=== PATIENT | female | born 1995 | race Caucasian/White ===

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

== ENCOUNTER 2017-02-01 20:22 | Inpatient (IN) | payer SELFPAY ==
[~2017-02-01] VITALS: Ht 152.4 cm; Wt 61.3 kg
[2017-02-01 20:23] VITALS: BP 137/85; PULSE 77; RESP 16; TEMP 98.1; O2SAT 97
[2017-02-01] MEDS ORDERED: SODIUM CHLORIDE 0.9% FLUSH 10 ML FLUSH IVF PRN (20:45)
[2017-02-01 20:52] VITALS: RESP 14; O2SAT 99
--- NOTE | 2017-02-01 20:55 | PD ---
HPI Chief Complaint: OD/ Ingestion Time Seen by Provider: 20:32 Travel History International Travel<30 days: No Contact w/Intl Traveler<30days: No Traveled to known affect area: No History of Present Illness HPI The patient is a 21-year-old female who presents emergency department after accidental ingestion of Tylenol. The patient states she has a history of chronic headaches, gets fevers easily, and felt warm today after work. The patient took 2 500 mg tablets of Tylenol approximately 6:30 PM. The patient then took approximately 6 more tablets over 2 hours for her headache, totaling a total of 4 g of Tylenol over approximately 3 hours. The patient does complain of mild nausea, states she normally has nausea after taken medications. Denies any vomiting or abdominal pain. The patient denies any suicidal ideation and denies any attempt to harm herself. The patient is currently asymptomatic. However, the patient was concerned about toxicity from the Tylenol. The symptoms are mild to nonexistent, no exacerbating or alleviating factors. PFSH Past Medical History Cancer: No Cardiovascular Problems: No Developmental Delay: No Diabetes: No Headaches: No Psychiatric: No Immunizations Current: Yes Seizures: No ?: Not LMP: doesnt have last had 3-4months ago Past Surgical History Section: No Social History Alcohol Use: No Tobacco Use: No Substance Use: No Allergies-Medications (Allergen,Severity, Reaction): Coded Allergies: cinnamon (Verified Allergy, Severe, Anaphylaxis, 02/01/17) No Known Allergies (Unverified Allergy, Unknown, 02/01/17) Reported Meds & Prescriptions Reported Meds & Active Scripts Active No Active Prescriptions or Reported Medications Review of Systems Except as stated in HPI: all other systems reviewed are Neg General / Constitutional: Positive: Fever HENT: Positive: Headaches, No: Neck Pain Cardiovascular: No: Chest Pain or Discomfort Respiratory: No: Shortness of Breath Gastrointestinal: No: Nausea, Vomiting, Abdominal Pain Musculoskeletal: No: Myalgias, Arthralgias Physical Exam Narrative GENERAL: Awake, alert, nontoxic-appearing 21-year-old female who appears his stated age and is in no acute respiratory distress. SKIN: Focused skin assessment warm/dry. HEAD: Atraumatic. Normocephalic. EYES: No icterus noted. ENT: No nasal bleeding or discharge. Mucous membranes pink and moist. NECK: Trachea midline. No JVD. CARDIOVASCULAR: Regular rate and rhythm. No murmur appreciated. RESPIRATORY: No accessory muscle use. Clear to auscultation. Breath sounds equal bilaterally. GASTROINTESTINAL: Abdomen soft, non-tender, nondistended. No significant hepatomegaly noted. No right upper quadrant tenderness. MUSCULOSKELETAL: No obvious deformities. No clubbing. No cyanosis. No edema. NEUROLOGICAL: Awake and alert. No obvious cranial nerve deficits. Motor grossly within normal limits. Normal speech. PSYCHIATRIC: Appropriate mood and affect; insight and judgment normal. Data Data Last Documented VS Vital Signs Date Time Temp Pulse Resp B/P (MAP) Pulse Ox O2 Delivery O2 Flow Rate FiO2 02/01/17 20:52 14 99 Room Air 02/01/17 20:23 98.1 77 Orders Orders Complete Blood Count With Diff (02/01/17 20:44) Comprehensive Metabolic Panel (02/01/17 20:44) Prothrombin Time / Inr (Pt) (02/01/17 20:44) Act Partial Throm Time (Ptt) (02/01/17 20:44) Iv Access Insert/Monitor (02/01/17 20:44) Ecg Monitoring (02/01/17 20:44) Oximetry (02/01/17 20:44) Sodium Chloride 0.9% Flush (Ns Flush) (02/01/17 20:45) Salicylates (Aspirin) (02/01/17 20:44) Tylenol (Acetaminophen) (02/01/17 20:44) Ed Discharge Order (02/01/17 22:12) Alcohol (Ethanol) (02/01/17 22:27) Electrocardiogram (02/01/17 ) Acetylcysteine Inj (Acetadote Inj) (02/01/17 22:30) Acetylcysteine Inj (Acetadote Inj) (02/01/17 23:30) Acetylcysteine Inj (Acetadote Inj) (02/02/17 03:30) Admit Order (Ed Use Only) (02/01/17 22:45) Labs Laboratory Tests Test 02/01/17 20:50 White Blood Count 9.7 TH/MM3 Red Blood Count 4.53 MIL/MM3 Hemoglobin 12.9 GM/DL Hematocrit 38.6 % Mean Corpuscular Volume 85.2 FL Mean Corpuscular Hemoglobin 28.5 PG Mean Corpuscular Hemoglobin Concent 33.5 % Red Cell Distribution Width 13.3 % Platelet Count 313 TH/MM3 Mean Platelet Volume 8.9 FL Neutrophils (%) (Auto) 68.2 % Lymphocytes (%) (Auto) 21.6 % Monocytes (%) (Auto) 9.2 % Eosinophils (%) (Auto) 0.5 % Basophils (%) (Auto) 0.5 % Neutrophils # (Auto) 6.6 TH/MM3 Lymphocytes # (Auto) 2.1 TH/MM3 Monocytes # (Auto) 0.9 TH/MM3 Eosinophils # (Auto) 0.0 TH/MM3 Basophils # (Auto) 0.0 TH/MM3 CBC Comment DIFF FINAL Differential Comment Prothrombin Time 10.5 SEC Prothromb Time International Ratio 1.0 RATIO Activated Partial Thromboplast Time 29.2 SEC Blood Urea Nitrogen 12 MG/DL Creatinine 0.72 MG/DL Random Glucose 99 MG/DL Total Protein 8.4 GM/DL Albumin 4.3 GM/DL Calcium Level 8.9 MG/DL Alkaline Phosphatase 74 U/L Aspartate Amino Transf (AST/SGOT) 6 U/L Alanine Aminotransferase (ALT/SGPT) 13 U/L Total Bilirubin 0.3 MG/DL Sodium Level 140 MEQ/L Potassium Level 3.7 MEQ/L Chloride Level 107 MEQ/L Carbon Dioxide Level 24.7 MEQ/L Anion Gap 8 MEQ/L Estimat Glomerular Filtration Rate 104 ML/MIN Salicylates Level LESS THAN 1.7 MG/DL Acetaminophen Level 174.2 MCG/ML Ethyl Alcohol Level LESS THAN 3 MG/DL MDM Medical Decision Making Medical Screen Exam Complete: Yes Emergency Medical Condition: Yes Medical Record Reviewed: Yes Interpretation(s) Laboratory Tests Test 02/01/17 20:50 White Blood Count 9.7 TH/MM3 Red Blood Count 4.53 MIL/MM3 Hemoglobin 12.9 GM/DL Hematocrit 38.6 % Mean Corpuscular Volume 85.2 FL Mean Corpuscular Hemoglobin 28.5 PG Mean Corpuscular Hemoglobin Concent 33.5 % Red Cell Distribution Width 13.3 % Platelet Count 313 TH/MM3 Mean Platelet Volume 8.9 FL Neutrophils (%) (Auto) 68.2 % Lymphocytes (%) (Auto) 21.6 % Monocytes (%) (Auto) 9.2 % Eosinophils (%) (Auto) 0.5 % Basophils (%) (Auto) 0.5 % Neutrophils # (Auto) 6.6 TH/MM3 Lymphocytes # (Auto) 2.1 TH/MM3 Monocytes # (Auto) 0.9 TH/MM3 Eosinophils # (Auto) 0.0 TH/MM3 Basophils # (Auto) 0.0 TH/MM3 CBC Comment DIFF FINAL Differential Comment Prothrombin Time 10.5 SEC Prothromb Time International Ratio 1.0 RATIO Activated Partial Thromboplast Time 29.2 SEC Blood Urea Nitrogen 12 MG/DL Creatinine 0.72 MG/DL Random Glucose 99 MG/DL Total Protein 8.4 GM/DL Albumin 4.3 GM/DL Calcium Level 8.9 MG/DL Alkaline Phosphatase 74 U/L Aspartate Amino Transf (AST/SGOT) 6 U/L Alanine Aminotransferase (ALT/SGPT) 13 U/L Total Bilirubin 0.3 MG/DL Sodium Level 140 MEQ/L Potassium Level 3.7 MEQ/L Chloride Level 107 MEQ/L Carbon Dioxide Level 24.7 MEQ/L Anion Gap 8 MEQ/L Estimat Glomerular Filtration Rate 104 ML/MIN Salicylates Level LESS THAN 1.7 MG/DL Acetaminophen Level 174.2 MCG/ML Differential Diagnosis Differential diagnoses includes acetaminophen toxicity, accidental acetaminophen overdose, hepatitis, medication side effect, viral syndrome. Narrative Course IV was established and labs are drawn and sent. Initial Tylenol level was sent and the 4 hour Tylenol level was ordered for 12:40 AM. The initial acetaminophen level was 174.2, therefore, poison control was contacted. Poison control recommends treatment with acetylcysteine. Therefore, I do discussion with the patient regarding the need for treatment. However, the patient states she cannot afford to miss work and wants to leave the hospital. I had a prolonged discussion with the patient regarding the risk and benefits of leaving against medical record transcriber. I did tell her that if she continues to have an elevated acetaminophen level it can affect the liver causing acute hepatitis with symptoms including nausea, vomiting, hepatic failure, and subsequent and/or the need for liver transplant. I advised patient that she would need treatment with the antidote secondary to the elevated level. However, the patient adamantly refuses, states she wants to leave and go to work. The patient is alert and oriented to person, place, month, year, and bicycle repairer. Denies suicidal ideation, states he was an unintentional overdose secondary to her headache. The patient does not meet Gruber act criteria, I tried to reason with the patient at length regarding the need for treatment, however, the patient refused. However, the patient then changed her mind and stated she would stay after speaking with nursing staff. The patient was worried about her service animal that is a cat. I had a discussion with the charge nurse who stated the patient' s service animal can stay with the patient if necessary. The patient did decide to stay, therefore, IV acetylcysteine was ordered immediately. Patient will be admitted to the medical service. Procedures Procedure Narrative AMA: The risks of leaving against medical advice without further evaluation treatment were discussed with the patient. These risks include cardiac dysfunction, cardiac dysrhythmia, possible heart attack, possible stroke or . The patient indicated understanding of these risks and appeared to have the capacity to make this decision. Physician Communication Physician Communication The on-call medical service was paged for admission. I discussed the patient with Dr Menon who agrees with admission. Diagnosis Primary Impression: Accidental acetaminophen overdose Qualified Codes: T39.1X1A - Poisoning by 4-aminophenol derivatives, accidental (unintentional), initial encounter Admitting Information Admitting Physician Requests: Admit Patient Instructions: General Instructions Med/Other Pt SpecificInfo: No Change to Meds Scripts No Active Prescriptions or Reported Meds Condition: Stable Mohsen Connor MD Feb 01, 2017 20:55
[2017-02-01 21:22] LABS: AUTOMATED NEUTROPHIL # 6.6 TH/MM3 (1.8-7.7); BASOPHIL % 0.5 % (0.0-2.0); EOSINOPHIL % 0.5 % (0.0-4.0); HEMATOCRIT 38.6 % (35.0-46.0); HEMO FLAGS DIFF FINAL; LYMPH % 21.6 % (9.0-44.0); LYMPHOCYTE # 2.1 TH/MM3 (1.0-4.8); MEAN CELL VOLUME 85.2 FL (80.0-100.0); MEAN CORPUSCULAR HEMOGLOBIN 28.5 PG (27.0-34.0); MEAN CORPUSCULAR HGB CONC 33.5 % (32.0-36.0); MONO % 9.2 % (0.0-8.0); NEUT % 68.2 % (16.0-70.0); PLATELET COUNT 313 TH/MM3 (150-450); RED BLOOD COUNT 4.53 MIL/MM3 (4.00-5.30); RED CELL DISTRIBUTION WIDTH 13.3 % (11.6-17.2); WHITE BLOOD COUNT 9.7 TH/MM3 (4.0-11.0)
[2017-02-01 21:23] LABS: APTT (PATIENT) 29.2 SEC (24.3-30.1); PROTHROMBIN TIME - PATIENT 10.5 SEC (9.8-11.6)
[2017-02-01 21:37] LABS: ANION GAP 8 MEQ/L (5-15); AST (GOT) 6 U/L (16-38); BICARBONATE 24.7 MEQ/L (21.0-32.0); BLOOD UREA NITROGEN 12 MG/DL (7-18); CHLORIDE 107 MEQ/L (98-107); GLOMERULAR FILTRATION RATE 104 ML/MIN (>89); POTASSIUM 3.7 MEQ/L (3.5-5.1); SODIUM (NA) 140 MEQ/L (136-145)
[2017-02-01 21:38] LABS: ALT (GPT) 13 U/L (9-42)
[2017-02-01 21:40] LABS: ALKALINE PHOSPHATASE 74 U/L (45-117); TOTAL BILIRUBIN ADULT 0.3 MG/DL (0.2-1.0)
[2017-02-01 21:43] LABS: ACETAMINOPHEN 174.2 MCG/ML (10.0-30.0)
[2017-02-01] MEDS ORDERED: WATER IV SCH ×2 (22:30)
[2017-02-01] MEDS ORDERED: ACETYLCYSTEINE IV SCH ×4 (22:30→23:30)
[2017-02-01] MEDS ORDERED: DEXTROSE 5% IV SCH ×4 (22:30→23:30)
--- NOTE | 2017-02-01 22:49 | HHI.HP ---
[facility] Service [facility] Primary Care Physician No Primary Care Physician Admission Diagnosis Tylenol ingestion with elevated level Diagnoses: (1) Accidental acetaminophen overdose Diagnosis: Principal (2) Intractable nausea and vomiting Diagnosis: Principal Travel History International Travel<30 Days: No Contact w/Intl Traveler <30 Da: No Traveled to Known Affected Are: No History of Present Illness This is a 21-year-old Transgender female (goes by the name Marques) with no significant PMH who presents the ER with concern for Tylenol toxicity. Per patient she's had severe headache earlier today, states she took 2 tablets of Tylenol 500mg at approx 1830 w/ no improvement. Took additional 6 tablets of Tylenol 500mg in 2-hour time span, total dose of 4gm over 3hr period. Now w/ complaints of nausea/vomiting. Denies suicidal ideation, reports accidental Tylenol overdose. Tylenol level 174, labs otherwise unremarkable. Poison Control contacted, recommended N-acetylcysteine and EKG. Review of Systems Except as stated in HPI: all other systems reviewed are Neg ROS: 14 point review of systems otherwise negative. Past Family Social History Past Medical History PMH: None Past Surgical History PAST SURGICAL HISTORY: None Allergies: Coded Allergies: cinnamon (Verified Allergy, Severe, Anaphylaxis, 02/01/17) No Known Allergies (Unverified Allergy, Unknown, 02/01/17) Family History PAST FAMILY HISTORY: Reviewed. No h/o DM or CAD Social History PAST SOCIAL HISTORY: Negative for alcohol, tobacco or drugs. Physical Exam Vital Signs Vital Signs Date Time Temp Pulse Resp B/P (MAP) Pulse Ox O2 Delivery O2 Flow Rate FiO2 02/01/17 20:52 14 99 Room Air 02/01/17 20:23 98.1 77 16 137/85 (102) 97 Room Air Physical Exam PE: GENERAL: Pleasant young transgender female in no acute distress. HEENT: PERRLA, EOMI. No scleral icterus or conjunctival pallor. No lid lag or facial droop. CARDIOVASCULAR: Regular rate and rhythm. No obvious murmurs to auscultation. No chest tenderness to palpation. RESPIRATORY: No obvious rhonchi or wheezing. Clear to auscultation. Breath sounds equal bilaterally. GASTROINTESTINAL: Abdomen soft, non-tender, nondistended. BS normal. MUSCULOSKELETAL: Extremities without clubbing, cyanosis, or edema. No obvious deformities. NEUROLOGICAL: Awake, alert and oriented x4. No focal neurologic deficits. Moving both upper and lower extremities spontaneously. Laboratory Laboratory Tests Test 02/01/17 20:50 White Blood Count 9.7 Red Blood Count 4.53 Hemoglobin 12.9 Hematocrit 38.6 Mean Corpuscular Volume 85.2 Mean Corpuscular Hemoglobin 28.5 Mean Corpuscular Hemoglobin Concent 33.5 Red Cell Distribution Width 13.3 Platelet Count 313 Mean Platelet Volume 8.9 Neutrophils (%) (Auto) 68.2 Lymphocytes (%) (Auto) 21.6 Monocytes (%) (Auto) 9.2 Eosinophils (%) (Auto) 0.5 Basophils (%) (Auto) 0.5 Neutrophils # (Auto) 6.6 Lymphocytes # (Auto) 2.1 Monocytes # (Auto) 0.9 Eosinophils # (Auto) 0.0 Basophils # (Auto) 0.0 CBC Comment DIFF FINAL Differential Comment Prothrombin Time 10.5 Prothromb Time International Ratio 1.0 Activated Partial Thromboplast Time 29.2 Blood Urea Nitrogen 12 Creatinine 0.72 Random Glucose 99 Total Protein 8.4 Albumin 4.3 Calcium Level 8.9 Alkaline Phosphatase 74 Aspartate Amino Transf (AST/SGOT) 6 Alanine Aminotransferase (ALT/SGPT) 13 Total Bilirubin 0.3 Sodium Level 140 Potassium Level 3.7 Chloride Level 107 Carbon Dioxide Level 24.7 Anion Gap 8 Estimat Glomerular Filtration Rate 104 Salicylates Level LESS THAN 1.7 Acetaminophen Level 174.2 Result Diagram: 02/01/17204902/01/172049 Caprini VTE Risk Assessment Caprini VTE Risk Assessment: No/Low Risk (score <= 1) Caprini Risk Assessment Model Point Value = 1 Point Value = 2 Point Value = 3 Point Value = 5 Age 41-60 Minor surgery BMI > 25 kg/m2 Swollen legs Varicose veins or History of unexplained or recurrent spontaneous Oral contraceptives or hormone replacement Sepsis (< 1 month) Serious lung disease, including pneumonia (< 1 month) Abnormal pulmonary function Acute myocardial infarction Congestive heart failure (< 1 month) History of inflammatory bowel disease Medical patient at bed rest Age 61-74 Arthroscopic surgery Major open surgery (> 45 min) Laparoscopic surgery (> 45 min) Malignancy Confined to bed (> 72 hours) Immobilizing plaster cast Central venous access Age >= 75 History of VTE Family history of VTE Factor V Leiden Prothrombin 52002A Lupus anticoagulant Anticardiolipin antibodies Elevated serum homocysteine Heparin-induced thrombocytopenia Other congenital or acquired thrombophilia Stroke (< 1 month) Elective arthroplasty Hip, pelvis, or leg fracture Acute spinal cord injury (< 1 month) Prophylaxis Regimen Total Risk Factor Score Risk Level Prophylaxis Regimen 0-1 Low Early ambulation 2 Moderate Order ONE of the following: *Sequential Compression Device (SCD) *Heparin 5000 units SQ BID 3-4 Higher Order ONE of the following medications: *Heparin 5000 units SQ TID *Enoxaparin/Lovenox 40 mg SQ daily (WT < 150 kg, CrCl > 30 mL/min) *Enoxaparin/Lovenox 30 mg SQ daily (WT < 150 kg, CrCl > 10-29 mL/min) *Enoxaparin/Lovenox 30 mg SQ BID (WT < 150 kg, CrCl > 30 mL/min) AND/OR *Sequential Compression Device (SCD) 5 or more Highest Order ONE of the following medications: *Heparin 5000 units SQ TID (Preferred with Epidurals) *Enoxaparin/Lovenox 40 mg SQ daily (WT < 150 kg, CrCl > 30 mL/min) *Enoxaparin/Lovenox 30 mg SQ daily (WT < 150 kg, CrCl > 10-29 mL/min) *Enoxaparin/Lovenox 30 mg SQ BID (WT < 150 kg, CrCl > 30 mL/min) AND *Sequential Compression Device (SCD) Assessment and Plan Problem List: (1) Accidental acetaminophen overdose ICD Code: T39.1X1A - Poisoning by 4-Aminophenol derivatives, accidental ( unintentional), initial encounter Status: Acute (2) Intractable nausea and vomiting ICD Code: R11.2 - Nausea with vomiting, unspecified Assessment and Plan A/P: 1. Tylenol OD: Accidental Tylenol overdose, c/o severe headache, took approx 4g Tylenol within 3hr time span, Tylenol level 174. Labs unremarkable, PT/INR normal, LFTs normal. Poison Control recommending N-acetylcysteine and EKG. Start N-acetylcysteine, IVF, repeat PT/INR, CMP and Tylenol level q4h. Avoid Tylenol or Tylenol-containing medications. 2. Intractable N/V: Likely secondary to Tylenol overdose. Antiemetics as needed. 3. DVT Prophylaxis: SCD/Teds. 4. Social work for d/c planning as needed. 5. Case discussed w/ ER physician at length. Physician Certification 2 Midnight Certification Type: Admission for Inpatient Services Order for Inpatient Services The services are ordered in accordance with Medicare regulations or non- Medicare payer requirements, as applicable. In the case of services not specified as inpatient-only, they are appropriately provided as inpatient services in accordance with the 2-midnight benchmark. Estimated LOS (days): 2 days is the estimated time the patient will need to remain in the hospital, assuming treatment plan goals are met and no additional complications. Post-Hospital Plan: Not yet determined Problem Qualifiers (1) Accidental acetaminophen overdose: Qualified Codes: T39.1X1A - Poisoning by 4-aminophenol derivatives, accidental (unintentional), initial encounter Joyce Menon MD Feb 01, 2017 22:49
[2017-02-01] MEDS ORDERED: LACTULOSE SYRUP 20 GM/30 ML CUP PO PRN (23:00)
[2017-02-01] MEDS ORDERED: ONDANSETRON HCL 4 MG/2 ML VIAL IVP PRN (23:00)
[2017-02-01] MEDS ORDERED: SENNOSIDES 8.6 MG TAB PO PRN (23:00)
[2017-02-01] MEDS ORDERED: SODIUM CHLORIDE 0.9% FLUSH 10 ML FLUSH IV FLUSH PRN (23:00)
[2017-02-01] MEDS ORDERED: MAGNESIUM HYDROXIDE SUSP 30 ML CUP PO PRN (23:00)
[2017-02-01] MEDS ORDERED: BISACODYL 10 MG SUPP RECTAL PRN (23:00)
[2017-02-01] MEDS ORDERED: WATE IV SCH ×2 (23:30)
[2017-02-02] VITALS (7 sets, daily range): BP systolic 94–112; BP diastolic 57–79; PULSE 60–88; RESP 16–17; TEMP 96.9–98.7; O2SAT 97–100
[2017-02-02 02:22] LABS: INTERNATIONAL NORMALIZED RATIO 1.1 RATIO; PROTHROMBIN TIME - PATIENT 11.5 SEC (9.8-11.6)
[2017-02-02 02:25] LABS: BLOOD, URINE NEG (NEG); GLUCOSE,URINE NEG (NEG); KETONE, URINE 150 mg/dL (NEG); NITRITE,URINE NEG (NEG); SQUAMOUS EPITHELIAL CELL URINE 2 /hpf (0-5); URINE COLOR LIGHT-YELLOW (YELLW/STRAW)
[2017-02-02 02:26] LABS: COMMENT (UR) CULT NOT INDICATED; CULTURE IF INDICATED CULT NOT INDICATED
[2017-02-02 02:46] LABS: ACETAMINOPHEN 56.9 MCG/ML (10.0-30.0); ALKALINE PHOSPHATASE 57 U/L (45-117); ALT (GPT) 23 U/L (9-42); ANION GAP 15 MEQ/L (5-15); AST (GOT) 6 U/L (16-38); BICARBONATE 24.4 MEQ/L (21.0-32.0); BLOOD UREA NITROGEN 12 MG/DL (7-18); CHLORIDE 105 MEQ/L (98-107); GLOMERULAR FILTRATION RATE 179 ML/MIN (>89); POTASSIUM 3.6 MEQ/L (3.5-5.1); SODIUM (NA) 144 MEQ/L (136-145); TOTAL BILIRUBIN ADULT 0.3 MG/DL (0.2-1.0)
[2017-02-02] MEDS ORDERED: DEXTROSE 5% IV SCH ×2 (03:30)
[2017-02-02] MEDS ORDERED: ACETYLCYSTEINE IV SCH ×2 (03:30)
[2017-02-02] MEDS ORDERED: WATE IV SCH ×2 (03:30)
[2017-02-02 06:23] LABS: INTERNATIONAL NORMALIZED RATIO 1.1 RATIO; PROTHROMBIN TIME - PATIENT 11.6 SEC (9.8-11.6)
[2017-02-02 06:43] LABS: ANION GAP 9 MEQ/L (5-15); AST (GOT) 5 U/L (16-38); BICARBONATE 27.3 MEQ/L (21.0-32.0); BLOOD UREA NITROGEN 8 MG/DL (7-18); CHLORIDE 103 MEQ/L (98-107); GLOMERULAR FILTRATION RATE 142 ML/MIN (>89); POTASSIUM 3.2 MEQ/L (3.5-5.1); SODIUM (NA) 139 MEQ/L (136-145)
[2017-02-02 06:44] LABS: ALT (GPT) 21 U/L (9-42)
[2017-02-02 06:46] LABS: ACETAMINOPHEN 17.9 MCG/ML (10.0-30.0); ALKALINE PHOSPHATASE 59 U/L (45-117); TOTAL BILIRUBIN ADULT 0.4 MG/DL (0.2-1.0)
--- NOTE | 2017-02-02 07:44 | HHI.PR ---
Subjective Remarks in no acute distress. denies abdominal pain. had on and off nausea earlier. no other complaints. Objective Vitals Vital Signs Date Time Temp Pulse Resp B/P (MAP) Pulse Ox O2 Delivery O2 Flow Rate FiO2 02/02/17 04:59 96.9 60 17 94/65 (75) 98 02/02/17 00:45 98.3 83 17 112/79 (90) 97 02/02/17 00:43 02/02/17 00:40 98 Room Air 02/01/17 20:52 14 99 Room Air 02/01/17 20:23 98.1 77 16 137/85 (102) 97 Room Air I/O 02/01/17 02/01/17 02/01/17 02/02/17 02/02/17 02/02/17 07:00 15:00 23:00 07:00 15:00 23:00 Intake Total 1240.75 ml Balance 1240.75 ml Intake Oral 480 ml IV Total 760.75 ml # Voids 2 # Bowel Movements 0 Result Diagram: 02/01/17204902/02/17 0550 Objective Remarks GENERAL: This is a well-nourished, well-developed patient, in no apparent distress. CARDIOVASCULAR: Regular rate and regular rhythm without murmurs, gallops, or rubs. RESPIRATORY: Clear to auscultation. Breath sounds equal bilaterally. No wheezes , rales, or rhonchi. GASTROINTESTINAL: Abdomen soft, non-tender, nondistended. Normal, active bowel sounds MUSCULOSKELETAL: Extremities without clubbing, cyanosis, or edema. NEURO: Alert & Oriented x4 to person, place, time, situation. Moves all ext x4 Procedures none Medications and IVs Inpatient Medications Acetylcysteine 3050 mg/Dextrose 515.25 ml @ 125 mls/ hr ONCE IV Last administered on 02/02/17 01:08; Start 02/01/17 at 23:30; Stop 02/02/17 at 03 :29; Status DC Acetylcysteine 6100 mg/Dextrose 1,030.5 ml @ 62.5 mls/ hr ONCE IV Last administered on 02/02/17 05:17; Start 02/02/17 at 03:30; Stop 02/02/17 at 19 :29 Acetylcysteine 9150 mg/Dextrose 245.75 ml @ 200 mls/ hr ONCE IV Last administered on 02/01/17t 23:43; Start 02/01/17 at 22:30; Stop 02/01/17 at 23 :29; Status DC Bisacodyl (Dulcolax Supp) 10 mg DAILY PRN RECTAL SEVERE CONSITIPATION/ IF NPO; Start 02/01/17 at 23:00 Lactulose (Lactulose Liq) 30 ml DAILY PRN PO SEVERE CONSITIPATION/ IF PO; Start 02/01/17 at 23:00 Magnesium Hydroxide (Milk Of Magnesia Liq) 30 ml Q12H PRN PO Mild constipation ; Start 02/01/17 at 23:00 Ondansetron HCl (Zofran Inj) 4 mg Q6H PRN IVP NAUSEA OR VOMITING Last administered on 02/02/17 00:55; Start 02/01/17 at 23:00 Senna/Docusate Sodium (Caitlyn-Colace) 1 tab BID PO ; Start 02/02/17 at 09:00 Sennosides (Senokot) 17.2 mg Q12H PRN PO Moderate constipation; Start at 23:00 Sodium Chloride (NS Flush) 2 ml BID IV FLUSH ; Start 02/02/17 at 09:00 A/P Problem List: (1) Accidental acetaminophen overdose ICD Code: T39.1X1A - Poisoning by 4-Aminophenol derivatives, accidental ( unintentional), initial encounter Status: Acute (2) Intractable nausea and vomiting ICD Code: R11.2 - Nausea with vomiting, unspecified Assessment and Plan A/P 1. Tylenol OD: Accidental Tylenol overdose, had severe headache, took approx 4g Tylenol within 3hr time span, Tylenol level 174. Labs unremarkable, PT/INR normal, LFTs normal. Poison Control recommended N-acetylcysteine continue to monitor PT/INR, LFT's and Tylenol level. Avoid Tylenol or Tylenol- containing medications. 2. Intractable N/V: Likely secondary to Tylenol overdose. Antiemetics as needed. 3.hypokalemia- will replace. 4. DVT Prophylaxis: SCD/Teds. Problem Qualifiers (1) Accidental acetaminophen overdose: Qualified Codes: T39.1X1A - Poisoning by 4-aminophenol derivatives, accidental (unintentional), initial encounter Juani Wiley MD Feb 02, 2017 07:44
[2017-02-02] MEDS ORDERED: POTASSIUM CHLORIDE 10 MEQ CONTROLLED RELEASE TAB PO ONE ×2 (07:45→12:00)
[2017-02-02] MEDS: DOCUSATE SODIUM 50 MG/SENNA 8.6 MG TAB PO SCH ×2 (08:31→21:47)
[2017-02-02] MEDS: SODIUM CHLORIDE 0.9% FLUSH 10 ML FLUSH IV FLUSH SCH ×2 (08:31→21:47)
[2017-02-02 13:59] LABS: INTERNATIONAL NORMALIZED RATIO 1.1 RATIO; PROTHROMBIN TIME - PATIENT 11.4 SEC (9.8-11.6)
[2017-02-02 14:14] LABS: ANION GAP 8 MEQ/L (5-15); AST (GOT) 4 U/L (16-38); BLOOD UREA NITROGEN 4 MG/DL (7-18); CHLORIDE 106 MEQ/L (98-107); GLOMERULAR FILTRATION RATE 149 ML/MIN (>89); POTASSIUM 3.6 MEQ/L (3.5-5.1); SODIUM (NA) 139 MEQ/L (136-145)
[2017-02-02 14:18] LABS: ACETAMINOPHEN LESS THAN 2.0 MCG/ML (10.0-30.0); ALKALINE PHOSPHATASE 53 U/L (45-117); ALT (GPT) 15 U/L (9-42); TOTAL BILIRUBIN ADULT 0.5 MG/DL (0.2-1.0)
[2017-02-02 17:50] LABS: INTERNATIONAL NORMALIZED RATIO 1.1 RATIO; PROTHROMBIN TIME - PATIENT 11.1 SEC (9.8-11.6)
[2017-02-02 17:52] LABS: ALT (GPT) 15 U/L (9-42); ANION GAP 10 MEQ/L (5-15); AST (GOT) 7 U/L (16-38); BICARBONATE 24.5 MEQ/L (21.0-32.0); BLOOD UREA NITROGEN 3 MG/DL (7-18); CHLORIDE 105 MEQ/L (98-107); GLOMERULAR FILTRATION RATE 189 ML/MIN (>89); POTASSIUM 3.5 MEQ/L (3.5-5.1); SODIUM (NA) 139 MEQ/L (136-145)
[2017-02-02 17:55] LABS: ALKALINE PHOSPHATASE 56 U/L (45-117); TOTAL BILIRUBIN ADULT 0.5 MG/DL (0.2-1.0)
[2017-02-02 17:58] LABS: ACETAMINOPHEN LESS THAN 2.0 MCG/ML (10.0-30.0)
[2017-02-02 20:28] LABS: INTERNATIONAL NORMALIZED RATIO 1.1 RATIO; PROTHROMBIN TIME - PATIENT 11.6 SEC (9.8-11.6)
[2017-02-02 20:39] LABS: ACETAMINOPHEN LESS THAN 2.0 MCG/ML (10.0-30.0); ALT (GPT) 14 U/L (9-42); AST (GOT) 4 U/L (16-38)
[2017-02-02 20:41] LABS: ALKALINE PHOSPHATASE 56 U/L (45-117); INDIRECT BILIRUBIN 0.2 MG/DL (0.0-0.8); TOTAL BILIRUBIN ADULT 0.3 MG/DL (0.2-1.0)
--- NOTE | 2017-02-02 22:52 | EKG ---
Date Performed: 02/01/2017 Time Performed: 23:55:37 PTAGE: 21 years EKG: Sinus rhythm NORMAL ECG Compared to the PREVIOUS TRACING from 10/28/15, no significant change DOCTOR: Ton Alejandro Interpretating Date/Time 02/02/2017 22:50:52
--- NOTE | 2017-02-03 03:52 | HHI.PR ---
Addendum To [facility] Progress Not Reason for addendum: Additonal documentation (Received call from PT's RN who stated she was contacted by poison control and requested AST/ ALT and coag study for PT/INR be completed this morning. Orders placed) Nitin Belle Jr. Feb 03, 2017 03:52
[2017-02-03 04:00] VITALS: BP 104/59; PULSE 76; RESP 17; TEMP 97.3; O2SAT 98
[2017-02-03 07:09] LABS: INDIRECT BILIRUBIN 0.1 MG/DL (0.0-0.8); TOTAL BILIRUBIN ADULT 0.2 MG/DL (0.2-1.0)
[2017-02-03 07:13] LABS: APTT (PATIENT) 25.7 SEC (24.3-30.1); INTERNATIONAL NORMALIZED RATIO 1.1 RATIO; PROTHROMBIN TIME - PATIENT 11.1 SEC (9.8-11.6)
[2017-02-03 08:00] VITALS: BP 104/54; PULSE 80; RESP 18; TEMP 96.2; O2SAT 98
--- NOTE | 2017-02-03 08:10 | HHI.DS ---
Discharge Summary Admission Date Feb 01, 2017 at 22:47 Discharge Date: Feb 03, 2017 Admitting Diagnosis Tylenol ingestion with elevated level (1) Accidental acetaminophen overdose ICD Code: T39.1X1A - Poisoning by 4-Aminophenol derivatives, accidental ( unintentional), initial encounter Status: Acute (2) Intractable nausea and vomiting ICD Code: R11.2 - Nausea with vomiting, unspecified Procedures none Brief History - From Admission This is a 21-year-old Transgender female (goes by the name Marques) with no significant PMH who presents the ER with concern for Tylenol toxicity. Per patient she's had severe headache earlier today, states she took 2 tablets of Tylenol 500mg at approx 1830 w/ no improvement. Took additional 6 tablets of Tylenol 500mg in 2-hour time span, total dose of 4gm over 3hr period. Now w/ complaints of nausea/vomiting. Denies suicidal ideation, reports accidental Tylenol overdose. Tylenol level 174, labs otherwise unremarkable. Poison Control contacted, recommended N-acetylcysteine and EKG. CBC/BMP: 02/01/170 02/02/17 1623 Significant Findings Laboratory Tests Test 02/01/17 20:50 02/02/17 01:33 02/02/17 01:57 02/02/17 05:50 Monocytes (%) (Auto) 9.2 % (0.0-8.0) Total Protein 8.4 GM/DL (6.4-8.2) Aspartate Amino Transf (AST/SGOT) 6 U/L (16-38) 6 U/L (16-38) 5 U/L (16-38) Salicylates Level LESS THAN 1.7 MG/DL Acetaminophen Level 174.2 MCG/ML (10.0-30.0) 56.9 MCG/ML (10.0-30.0) Urine Turbidity HAZY (CLEAR) Urine Ketones 150 mg/dL (NEG) Urine Yeast (Budding) MANY (NONE) Urine Cocaine Screen POS (NEG) Urine Cannabinoids Screen POS (NEG) Creatinine 0.45 MG/DL (0.50-1.00) Random Glucose 115 MG/DL (74-106) 116 MG/DL (74-106) Calcium Level 8.3 MG/DL (8.5-10.1) 8.4 MG/DL (8.5-10.1) Potassium Level 3.2 MEQ/L (3.5-5.1) Test 02/02/17 13:12 02/02/17 13:13 02/02/17 16:23 02/02/17 19:43 Blood Urea Nitrogen 4 MG/DL (7-18) 3 MG/DL (7-18) Aspartate Amino Transf (AST/SGOT) 4 U/L (16-38) 7 U/L (16-38) 4 U/L (16-38) Acetaminophen Level LESS THAN 2.0 MCG/ML LESS THAN 2.0 MCG/ML LESS THAN 2.0 MCG/ML Creatinine 0.43 MG/DL (0.50-1.00) Test 02/03/17 06:25 Aspartate Amino Transf (AST/SGOT) 4 U/L (16-38) Total Protein 6.3 GM/DL (6.4-8.2) Albumin 3.3 GM/DL (3.4-5.0) PE at Discharge GENERAL: This is a well-nourished, well-developed patient, in no apparent distress. CARDIOVASCULAR: Regular rate and regular rhythm without murmurs, gallops, or rubs. RESPIRATORY: Clear to auscultation. Breath sounds equal bilaterally. No wheezes , rales, or rhonchi. GASTROINTESTINAL: Abdomen soft, non-tender, nondistended. Normal, active bowel sounds MUSCULOSKELETAL: Extremities without clubbing, cyanosis, or edema. NEURO: Alert & Oriented x4 to person, place, time, situation. Moves all ext x4 Hospital Course patient was admitted with accidental tylenol overdose. she received Acetylcysteine. her LFT's and coagulation profile remained within normal limit. tylenol level trended down. poison control was contacted and she was cleared for discharge. she will have a follow-up with her PCP upon discharge. Pt Condition on Discharge: Good Discharge Disposition: Discharge Home Discharge Time: <= 30 minutes Discharge Instructions DIET: Follow Instructions for: As Tolerated, No Restrictions Activities you can perform: Regular-No Restrictions Follow up Referrals: PCP Follow-up Juani Wiley MD Feb 03, 2017 08:10
--- NOTE | 2017-02-03 08:13 | HHI.PR ---
Subjective Remarks in no acute distress. resting comfortably with no abdominal pain, nausea or vomiting. no new complaints. Objective Vitals Vital Signs Date Time Temp Pulse Resp B/P (MAP) Pulse Ox O2 Delivery O2 Flow Rate FiO2 02/03/17 04:00 97.3 76 17 104/59 (74) 98 02/02/17 20:00 98.7 88 17 106/66 (79) 100 02/02/17 15:40 97.7 77 16 112/57 (75) 99 02/02/17 12:00 97.3 82 16 109/63 (78) 100 I/O 02/02/17 02/02/17 02/02/17 02/03/17 02/03/17 02/03/17 07:00 15:00 23:00 07:00 15:00 23:00 Intake Total 1240.75 ml 720 ml 1750 ml 240 ml Balance 1240.75 ml 720 ml 1750 ml 240 ml Intake Oral 480 ml 720 ml 720 ml 240 ml IV Total 760.75 ml 1030 ml # Voids 2 6 2 2 # Bowel Movements 0 0 Result Diagram: 02/01/17204902/02/171622 Objective Remarks GENERAL: This is a well-nourished, well-developed patient, in no apparent distress. CARDIOVASCULAR: Regular rate and regular rhythm without murmurs, gallops, or rubs. RESPIRATORY: Clear to auscultation. Breath sounds equal bilaterally. No wheezes , rales, or rhonchi. GASTROINTESTINAL: Abdomen soft, non-tender, nondistended. Normal, active bowel sounds MUSCULOSKELETAL: Extremities without clubbing, cyanosis, or edema. NEURO: Alert & Oriented x4 to person, place, time, situation. Moves all ext x4 Procedures none Medications and IVs Inpatient Medications Acetylcysteine 3050 mg/Dextrose 515.25 ml @ 125 mls/ hr ONCE IV Last administered on 02/02/17 01:08; Start 02/01/17 at 23:30; Stop 02/02/17 at 03 :29; Status DC Acetylcysteine 6100 mg/Dextrose 1,030.5 ml @ 62.5 mls/ hr ONCE IV Last administered on 02/02/17 05:17; Start 02/02/17 at 03:30; Stop 02/02/17 at 19 :29; Status DC Acetylcysteine 9150 mg/Dextrose 245.75 ml @ 200 mls/ hr ONCE IV Last administered on 02/01/17 23:43; Start 02/01/17 at 22:30; Stop 02/01/17 at 23 :29; Status DC Bisacodyl (Dulcolax Supp) 10 mg DAILY PRN RECTAL SEVERE CONSITIPATION/ IF NPO; Start 02/01/17 at 23:00 Lactulose (Lactulose Liq) 30 ml DAILY PRN PO SEVERE CONSITIPATION/ IF PO; Start 02/01/17 at 23:00 Magnesium Hydroxide (Milk Of Magnesia Liq) 30 ml Q12H PRN PO Mild constipation ; Start 02/01/17 at 23:00 Ondansetron HCl (Zofran Inj) 4 mg Q6H PRN IVP NAUSEA OR VOMITING Last administered on 02/02/17 00:55; Start 02/01/17 at 23:00 Potassium Chloride (KCl) 30 meq ONCE ONCE PO Last administered on 02/02/17 12:29; Start 02/02/17 at 12:00; Stop 02/02/17 at 12:01; Status DC Senna/Docusate Sodium (Caitlyn-Colace) 1 tab BID PO ; Start 02/02/17 at 09:00 Sennosides (Senokot) 17.2 mg Q12H PRN PO Moderate constipation; Start at 23:00 Sodium Chloride (NS Flush) 2 ml BID IV FLUSH Last administered on 02/02/17 21 :47; Start 02/02/17 at 09:00 A/P Problem List: (1) Accidental acetaminophen overdose ICD Code: T39.1X1A - Poisoning by 4-Aminophenol derivatives, accidental ( unintentional), initial encounter Status: Acute (2) Intractable nausea and vomiting ICD Code: R11.2 - Nausea with vomiting, unspecified Assessment and Plan A/P 1. Tylenol OD: Accidental Tylenol overdose, had severe headache, took approx 4g Tylenol within 3hr time span. received acetylcysteine- LFT's and PT/INR within normal limit. poison control was contacted and she was cleared for discharge. 2. Intractable N/V: Likely secondary to Tylenol overdose.resolved. 3.hypokalemia- replaced. 4. DVT Prophylaxis: SCD/Teds. Discharge Planning dc home. f/u with pcp. Problem Qualifiers (1) Accidental acetaminophen overdose: Qualified Codes: T39.1X1A - Poisoning by 4-aminophenol derivatives, accidental (unintentional), initial encounter Juani Wiley MD Feb 03, 2017 08:13
[2017-02-03] MEDS: DOCUSATE SODIUM 50 MG/SENNA 8.6 MG TAB PO SCH (09:00)
[2017-02-03] MEDS: SODIUM CHLORIDE 0.9% FLUSH 10 ML FLUSH IV FLUSH SCH (09:00)
== END 2017-02-03 15:21 | disposition home or self-care (01) | DRG 918 ==
LOC: NEPE 20:22 → NEDA 22:47 → N06A 02-02 00:38
PROVIDERS: ADMIT Internal Medicine; ATTEND Internal Medicine
DX: T39.1X1A Poisoning by 4-Aminophenol derivatives, accidental (unintentional), initial encounter (principal); E87.6 Hypokalemia; R51 Headache; R11.2 Nausea with vomiting, unspecified
CPT/HCPCS: 80053; 80076; 80307; 81001; 85025; 85610; 85730; 93005; 99285; J0132; J2405; J7060; J7070

== ENCOUNTER 2017-04-09 18:25 | Emergency (ER) | payer SELFPAY ==
[2017-04-09 18:29] VITALS: BP 126/71; PULSE 112; RESP 18; TEMP 99.8; O2SAT 99
[2017-04-09 18:59] LABS: AUTOMATED NEUTROPHIL # 9.4 TH/MM3 (1.8-7.7); BASOPHIL % 0.2 % (0.0-2.0); EOSINOPHIL % 0.3 % (0.0-4.0); HEMATOCRIT 35.8 % (35.0-46.0); HEMOGLOBIN 12.1 GM/DL (11.6-15.3); LYMPH % 15.8 % (9.0-44.0); LYMPHOCYTE # 1.9 TH/MM3 (1.0-4.8); MEAN CELL VOLUME 85.1 FL (80.0-100.0); MEAN CORPUSCULAR HEMOGLOBIN 28.8 PG (27.0-34.0); MEAN CORPUSCULAR HGB CONC 33.9 % (32.0-36.0); MONO % 6.4 % (0.0-8.0); MONOCYTE # 0.8 TH/MM3 (0-0.9); NEUT % 77.3 % (16.0-70.0); PLATELET COUNT 337 TH/MM3 (150-450); RED CELL DISTRIBUTION WIDTH 12.7 % (11.6-17.2); WHITE BLOOD COUNT 12.1 TH/MM3 (4.0-11.0)
[2017-04-09 19:15] LABS: ALBUMIN 4.2 GM/DL (3.4-5.0); AST (GOT) 5 U/L (16-38); BICARBONATE 29.4 MEQ/L (21.0-32.0); BLOOD UREA NITROGEN 15 MG/DL (7-18); CALCIUM 9.1 MG/DL (8.5-10.1); CHLORIDE 103 MEQ/L (98-107); CREATININE 0.71 MG/DL (0.50-1.00); GLOMERULAR FILTRATION RATE 105 ML/MIN (>89); GLUCOSE,RANDOM 118 MG/DL (74-106); SODIUM (NA) 139 MEQ/L (136-145)
[2017-04-09 19:16] LABS: ALT (GPT) 12 U/L (9-42)
[2017-04-09 19:18] LABS: ALKALINE PHOSPHATASE 80 U/L (45-117); TOTAL BILIRUBIN ADULT 0.6 MG/DL (0.2-1.0); TOTAL PROTEIN 8.2 GM/DL (6.4-8.2)
[2017-04-09 19:42] LABS: BACTERIA, URINE MOD /hpf; BILIRUBIN, URINE NEG (NEG); BLOOD, URINE MOD (NEG); GLUCOSE,URINE NEG (NEG); KETONE, URINE 40 mg/dL (NEG); MUCUS URINE MANY /lpf (OCC); NITRITE,URINE NEG (NEG); PH, URINE 7.5 (5.0-8.5); RENAL EPITHELIAL CELLS 1 /hpf; SQUAMOUS EPITHELIAL CELL URINE 1 /hpf (0-5); URINE COLOR YELLOW (YELLW/STRAW); URINE LEUKOCYTE ESTERASE LARGE (NEG); WHITE BLOOD CELL CLUMPS FEW
--- NOTE | 2017-04-09 20:27 | PD ---
HPI Chief Complaint: Abdominal Pain Time Seen by Provider: 20:26 Travel History International Travel<30 days: No Contact w/Intl Traveler<30days: No Traveled to known affect area: No History of Present Illness HPI The patient is a 22 year old female who presents to the [facility] emergency department with a history of abdominal pain that began that she reports began on . She reports that it has been constant. She reports that the pain has been a dull aching sensation with intermittent squeezing in the left upper quadrant of the abdomen that is now generalized. She reports that Sunday the pain became a 10 out of 10. She reports that she has not been able to go to work because of the pain. She reports that she has tremulousness related to the pain. She denies having any alleviating or aggravating factors. She denies any change in the pain with eating. She denies having any indigestion or heartburn. She denies having any recent fevers or chills. She does report having dysuria without urinary frequency or urgency since Sunday. She denies having any hematuria. On review of systems otherwise she denies having any recent cough, congestion, neck pain, chest pain , shortness of breath, vaginal discharge, or neurologic symptoms. LMP: Ended yesterday. PFSH Past Medical History Narrative Medical The patient's past medical history is reportedly none. According to the record the patient is transgender. Medical History: Denies Significant Hx Weight (Kg): 3 Anxiety: Yes Cancer: No Cardiovascular Problems: No Developmental Delay: No Diabetes: No Genitourinary: No Headaches: No Immune Disorder: No ( A CHILD) Musculoskeletal: No Neurologic: No Psychiatric: No Respiratory: No Immunizations Current: Yes Seizures: No Tetanus Vaccination: Never Vaccinated Influenza Vaccination: No ?: Not LMP: YESTERDAY Past Surgical History Narrative Surgical The patient's past surgical history is reportedly none. Section: No Social History Alcohol Use: No Tobacco Use: No Substance Use: No Allergies-Medications (Allergen,Severity, Reaction): Coded Allergies: cinnamon (Verified Allergy, Severe, Anaphylaxis, 02/01/17) Reported Meds & Prescriptions Reported Meds & Active Scripts Active Zofran Odt (Ondansetron Odt) 4 Mg Tab 4 Mg SL Q6HR PRN Bactrim DS (Sulfamethoxazole-Trimethoprim) 800-160 Mg Tab 1 Tab PO BID Review of Systems Except as stated in HPI: all other systems reviewed are Neg General / Constitutional: No: Fever Eyes: No: Visual changes HENT: No: Headaches Cardiovascular: No: Chest Pain or Discomfort Respiratory: No: Shortness of Breath Gastrointestinal: Positive: Abdominal Pain, No: Nausea, Vomiting, Diarrhea, Changes in Bowel Habits, Indigestion, Loss of Appetite Genitourinary: Positive: Dysuria, No: Urgency, Frequency Musculoskeletal: No: Pain Skin: No Rash Neurologic: No: Weakness Psychiatric: No: Depression Endocrine: No: Polydipsia Hematologic/Lymphatic: No: Easy Bruising Physical Exam Narrative General: The patient is a well-developed well-nourished female in no acute. Head and Neck exam: Head is normocephalic atraumatic. Eyes: EOMI, pupils are equal round and reactive to light. Nose: Midline septum with pink mucous membranes Mouth: Dentition unremarkable. Moist mucus membranes. Posterior oropharynx is not erythematous. No tonsillar hypertrophy. Uvula midline. Airway patent. Neck: No palpable lymphadenopathy. No nuchal rigidity. No thyromegaly. Cardiovascular: Regular rate and rhythm without murmurs, gallops, or rubs. Lungs: Clear to auscultation bilaterally. No wheezes, rhonchi, or rales. Abdomen: Soft, with reported tenderness on palpation of the left upper, right upper quadrant of the abdomen and left lower quadrant of the abdomen to palpation. No tenderness on palpation of McBurney's point. No guarding, rebound, or rigidity. Negative Simpson sign. Normal bowel sounds are audible. Extremities: No clubbing, cyanosis, or edema. 2+ pulses in all 4 extremities. No calf tenderness on palpation peer Back: No spinous process tenderness to palpation. Right-sided CVA tenderness reported on palpation. Neurologic Exam: Grossly nonfocal. Skin Exam: No rash noted. Intact skin that is warm and dry. Data Data Last Documented VS Vital Signs Date Time Temp Pulse Resp B/P (MAP) Pulse Ox O2 Delivery O2 Flow Rate FiO2 04/09/17 23:50 94 20 112/66 (81) 99 04/09/17 18:29 99.8 Orders Orders Complete Blood Count With Diff (04/09/17 18:32) Comprehensive Metabolic Panel (04/09/17 18:32) Lipase (2/26/18 18:32) Urinalysis - C+S If Indicated (04/09/17 18:32) Ed Urine Pregnancytest Poc (04/09/17 18:32) Urine Culture (04/09/17 18:36) Sodium Chlor 0.9% 1000 Ml Inj (Ns 1000 M (04/09/17 21:15) Ketorolac Inj (Toradol Inj) (04/09/17 21:15) Ceftriaxone Inj (Rocephin Inj) (04/09/17 21:15) Ct Abd/Pel W Iv Contrast(Rout) (04/09/17 21:03) Iohexol 350 Inj (Omnipaque 350 Inj) (04/09/17 23:16) Ed Discharge Order (04/09/17 23:47) Labs Laboratory Tests Test 04/09/17 18:36 White Blood Count 12.1 TH/MM3 Red Blood Count 4.20 MIL/MM3 Hemoglobin 12.1 GM/DL Hematocrit 35.8 % Mean Corpuscular Volume 85.1 FL Mean Corpuscular Hemoglobin 28.8 PG Mean Corpuscular Hemoglobin Concent 33.9 % Red Cell Distribution Width 12.7 % Platelet Count 337 TH/MM3 Mean Platelet Volume 8.0 FL Neutrophils (%) (Auto) 77.3 % Lymphocytes (%) (Auto) 15.8 % Monocytes (%) (Auto) 6.4 % Eosinophils (%) (Auto) 0.3 % Basophils (%) (Auto) 0.2 % Neutrophils # (Auto) 9.4 TH/MM3 Lymphocytes # (Auto) 1.9 TH/MM3 Monocytes # (Auto) 0.8 TH/MM3 Eosinophils # (Auto) 0.0 TH/MM3 Basophils # (Auto) 0.0 TH/MM3 CBC Comment DIFF FINAL Differential Comment Urine Color YELLOW Urine Turbidity HAZY Urine pH 7.5 Urine Specific [place] 1.020 Urine Protein 100 mg/dL Urine Glucose (UA) NEG mg/dL Urine Ketones 40 mg/dL Urine Occult Blood MOD Urine Nitrite NEG Urine Bilirubin NEG Urine Urobilinogen LESS THAN 2.0 MG/DL Urine Leukocyte Esterase LARGE Urine RBC 41 /hpf Urine WBC /hpf Urine WBC Clumps FEW Urine Squamous Epithelial Cells 1 /hpf Urine Renal Epithelial Cells 1 /hpf Urine Bacteria MOD /hpf Urine Mucus MANY /lpf Microscopic Urinalysis Comment CULTURE INDICATED Blood Urea Nitrogen 15 MG/DL Creatinine 0.71 MG/DL Random Glucose 118 MG/DL Total Protein 8.2 GM/DL Albumin 4.2 GM/DL Calcium Level 9.1 MG/DL Alkaline Phosphatase 80 U/L Aspartate Amino Transf (AST/SGOT) 5 U/L Alanine Aminotransferase (ALT/SGPT) 12 U/L Total Bilirubin 0.6 MG/DL Sodium Level 139 MEQ/L Potassium Level 3.1 MEQ/L Chloride Level 103 MEQ/L Carbon Dioxide Level 29.4 MEQ/L Anion Gap 7 MEQ/L Estimat Glomerular Filtration Rate 105 ML/MIN Lipase 69 U/L [facility] Medical Decision Making Medical Screen Exam Complete: Yes Emergency Medical Condition: Yes Medical Record Reviewed: Yes Interpretation(s) Last Impressions Abdomen/Pelvis CT 04/09/172102 Signed Impressions: Service Date/Time: Sunday, April 09, 2017 23:05 - CONCLUSION: 1. No definitive acute CT abnormality in the abdomen or pelvis to explain patient's abdominal pain. 2. Normal appearing appendix. 3. No radiopaque renal calculi or obstructive uropathy. Wei Subramanian MD Differential Diagnosis Peptic ulcer disease, versus pancreatitis, versus hepatitis, versus colitis, versus constipation, versus urinary tract infection, versus kidney stone Narrative Course During the course of the patient's emergency department visit, the patient's history, examination, and differential diagnosis were reviewed with the patient. The patient was placed on a youth nutritional monitor with oximetry and frequent blood pressure monitoring. The patient had IV access obtained and blood work sent for analysis. A CT scan of the abdomen and pelvis will be done. The patient was initially provided normal saline 1 L IV fluid bolus, Rocephin 1 g IV, Toradol 15 mg IV. The patient's laboratory studies were reviewed and remarkable for a white count of 12.1, hemoglobin 12.1, platelets 337 was 77.3 neutrophils, CMP is remarkable for potassium, glucose 118, AST 5, lipase 69, urinalysis shows 40 ketones moderate occult blood, large leukocyte esterase, 41 RBCs, innumerable WBCs with few WBC clumps, moderate bacteria, culture indicated. The patient was given Rocephin 1 g IV for urinary tract infection. Radiology studies were reviewed and remarkable for a CT scan of the abdomen and pelvis that showed no acute abnormality. The patient is resting comfortably and feels better, is alert and in no distress. The patient's results and examination findings were discussed with the patient. The repeat examination is unremarkable and benign. The history, exam, diagnostic testing, and current condition do not suggest any significant pathology to warrant further testing, continued ED treatment, admission, or surgical evaluation at this point. The vital signs have been stable. The patient does not have uncontrollable pain, intractable vomiting, or other significant symptoms. The patient's condition is stable and appropriate for discharge. The patient will pursue further outpatient evaluation with a primary care physician or other designated or consulting physician as indicated in the discharge instructions. The patient expressed understanding and was agreeable with this plan. Sepsis Criteria SIRS Criteria (2 or more): Heart rate over 90, WBC > 13007, < 4000 or > 10% bands Diagnosis Primary Impression: Abdominal pain Qualified Codes: R10.84 - Generalized abdominal pain Additional Impression: Urinary tract infection Qualified Codes: N39.0 - Urinary tract infection, site not specified Referrals: [facility] 2 days Patient Instructions: Abdominal Pain (ED), General Instructions, Urinary Tract Infection in Women (ED) Departure Forms: Tests/Procedures, Work Release Enter return to work date: Apr 11, 2017 Med/Other Pt SpecificInfo: Prescription(s) given Scripts Ondansetron Odt (Zofran Odt) 4 Mg Tab 4 MG SL Q6HR Y for Nausea/Vomiting, #7 TAB 0 Refills Prov: Mile Floyd MD 04/09/17 Sulfamethoxazole-Trimethoprim (Bactrim DS) 800-160 Mg Tab 1 TAB PO BID for Infection, #14 TAB 0 Refills Prov: Mile Floyd MD 04/09/17 Disposition: 01 DISCHARGE HOME Condition: Stable Mile Floyd MD Apr 09, 2017 20:27
[2017-04-09] MEDS ORDERED: SODIUM CHLOR 0.9% 1000 ML INJ 1,000 ML IV ONE (21:15)
[2017-04-09] MEDS ORDERED: cefTRIAXone INJ 1,000 MG in SODIUM CHLORIDE 0.9% INJ 100 ML IV ONE (21:15)
[2017-04-09] MEDS ORDERED: KETOROLAC TROMETHAMINE 30 MG/ML (IVP) VIAL IV PUSH ONE (21:15)
[2017-04-09 23:13] VITALS: RESP 20
[2017-04-09] MEDS ORDERED: IOHEXOL 350 MG/ML 10 ML VIAL (for RAD DIAG) IVCONTRAST ONE (23:16)
--- NOTE | 2017-04-09 23:24 | RADRPT ---
EXAM DATE/TIME: 04/09/2017 23:05 [place] COMPARISON: No previous studies available for comparison. INDICATIONS : Abdomen pain. IV CONTRAST: 80 cc Omnipaque 350 (iohexol) IV ORAL CONTRAST: No oral contrast ingested. RADIATION DOSE: 5.33 CTDIvol (mGy) MEDICAL HISTORY : None SURGICAL HISTORY : None. ENCOUNTER: Initial ACUITY: 1 day PAIN SCALE: 5/10 LOCATION: Bilateral abdomen TECHNIQUE: Volumetric scanning of the abdomen and pelvis was performed. Using automated exposure control and ad justment of the mA and/or kV according to patient size, radiation dose was kept as low as reasonably achievable to obtain optimal diagnostic quality images. DICOM format image data is available electro nically for review and comparison. FINDINGS: LOWER LUNGS: The visualized lower lungs are clear. LIVER: Homogeneous density without lesion. There is no dilation of the biliary tree. No calcified gallston es. SPLEEN: Normal size without lesion. PANCREAS: Within normal limits. KIDNEYS: Normal in size and shape. There is no mass, stone or hydronephrosis. ADRENAL GLANDS: Within normal limits. VASCULAR: There is no aortic aneurysm. BOWEL/MESENTERY: The stomach, small bowel, and colon demonstrate no acute abnormality. Appendix is visualized and renny ears unremarkable. There is no free intraperitoneal air or fluid. ABDOMINAL WALL: Within normal limits. RETROPERITONEUM: There is no lymphadenopathy. BLADDER: No wall thickening or mass. REPRODUCTIVE: Within normal limits. INGUINAL: There is no lymphadenopathy or hernia. MUSCULOSKELETAL: Within normal limits for patient age. CONCLUSION: 1. No definitive acute CT abnormality in the abdomen or pelvis to explain patient's abdominal pain. 2. Normal appearing appendix. 3. No radiopaque renal calculi or obstructive uropathy. Wei Subramanian MD on April 09, 2017 at 23:19 Board Certified Radiologist. This report was verified electronically.
[2017-04-09] MEDS ORDERED: BACT800T5 PO (23:32)
[2017-04-09] MEDS ORDERED: ZOFR4TAB3 SL (23:32)
[2017-04-09 23:50] VITALS: BP 112/66
== END 2017-04-10 01:21 | disposition home or self-care (01) ==
LOC: NEPE 18:25
DX: R10.84 Generalized abdominal pain (principal); N39.0 Urinary tract infection, site not specified
CPT/HCPCS: 74177; 80053; 81001; 83690; 84703; 85025; 87077; 87086; 87186; 96365; 96366; 96375; 99284; J0696; J1885; J7030; Q9967

== ENCOUNTER 2017-04-11 15:14 | Emergency (ER) | payer SELFPAY ==
[~2017-04-11] VITALS: Ht 152.4 cm; Wt 55.0 kg
[~2017-04-11 15:14] MED LIST: BACT800T5 PO; ZOFR4TAB3 SL
[2017-04-11 15:48] VITALS: BP 140/63; PULSE 96; RESP 17; TEMP 98.4; O2SAT 98
[2017-04-11] MEDS ORDERED: ALUMINUM/MAGNESIUM/SIMETH 30 ML CUP PO ONE (16:45)
[2017-04-11] MEDS ORDERED: DICYCLOMINE HCL 20 MG/2 ML VIAL IM ONE (16:45)
[2017-04-11] MEDS ORDERED: LIDOCAINE VISCOUS 2% SOLN 15 ML UDC PO ONE (16:45)
[2017-04-11] MEDS ORDERED: ONDANSETRON ODT 4 MG TAB PO/SL ONE (16:45)
--- NOTE | 2017-04-11 16:53 | PD ---
HPI Chief Complaint: Complaint Time Seen by Provider: 16:19 Travel History International Travel<30 days: No Contact w/Intl Traveler<30days: No Traveled to known affect area: No History of Present Illness HPI PATIENT WAS TREATED FOR UTI ON 04/09/17 AND D/C HOME ON BACTRIM DS...SINCE THEN EVERY TIME SHE TAKES BACTRIM SHE DEVELOPS TINGLING TO HER EXTREMITIES PATIENT UNDERGOING TRANSGENDERFICATION NO ALLERGIES TO MEDS PMHX:H/O GASTRITIS/ULCER, RECENT UTI, PFSH Past Medical History Medical History: Denies Significant Hx Weight (Kg): 3 Anxiety: Yes Cancer: No Cardiovascular Problems: No Developmental Delay: No Diabetes: No Genitourinary: No Headaches: No Immune Disorder: No ( A CHILD) Musculoskeletal: No Neurologic: No Psychiatric: No Respiratory: No Immunizations Current: Yes Seizures: No ?: Not Past Surgical History Surgical History: No Previous Surgery Section: No Other Surgery: No Social History Alcohol Use: No Tobacco Use: No Substance Use: No Allergies-Medications (Allergen,Severity, Reaction): Coded Allergies: cinnamon (Verified Allergy, Severe, Anaphylaxis, 04/11/17) Reported Meds & Prescriptions Reported Meds & Active Scripts Active Zofran Odt (Ondansetron Odt) 4 Mg Tab 4 Mg SL Q6HR PRN Bactrim DS (Sulfamethoxazole-Trimethoprim) 800-160 Mg Tab 1 Tab PO BID Review of Systems General / Constitutional: No: Fever Eyes: No: Visual changes HENT: No: Headaches Cardiovascular: No: Chest Pain or Discomfort Respiratory: No: Shortness of Breath Gastrointestinal: Positive: Nausea, Other (BURNING SENSATION TO EPIGASTRIUM) Genitourinary: No: Dysuria Musculoskeletal: No: Pain Skin: No Rash Neurologic: No: Weakness Psychiatric: No: Depression Endocrine: No: Polydipsia Hematologic/Lymphatic: No: Easy Bruising Physical Exam Narrative GENERAL: SKIN: Warm and dry. HEAD: Atraumatic. Normocephalic. EYES: Pupils equal and round. No scleral icterus. No injection or drainage. ENT: No nasal bleeding or discharge. Mucous membranes pink and moist. NECK: Trachea midline. No JVD. CARDIOVASCULAR: Regular rate and rhythm. RESPIRATORY: No accessory muscle use. Clear to auscultation. Breath sounds equal bilaterally. GASTROINTESTINAL: Abdomen soft, non-tender, nondistended. MUSCULOSKELETAL: Extremities without clubbing, cyanosis, or edema. No obvious deformities. NEUROLOGICAL: Awake and alert. No obvious cranial nerve deficits. Motor grossly within normal limits. Five out of 5 muscle strength in the arms and legs. Normal speech. PSYCHIATRIC: Appropriate mood and affect; insight and judgment normal. Data Data Last Documented VS Vital Signs Date Time Temp Pulse Resp B/P (MAP) Pulse Ox O2 Delivery O2 Flow Rate FiO2 04/11/17 15:48 98.4 96 17 140/63 (88) 98 Orders Orders Urinalysis - C+S If Indicated (04/11/17 16:33) Dicyclomine Inj (Bentyl Inj) (04/11/17 16:45) Al-Mag Hy-Si 40-40-4 Mg/Ml Liq (Mag-Al P (04/11/17 16:45) Lidocaine 2% Viscous (Xylocaine 2% Visco (04/11/17 16:45) Ondansetron Odt (Zofran Odt) (04/11/17 16:45) MDM Medical Decision Making Medical Screen Exam Complete: Yes Emergency Medical Condition: Yes Medical Record Reviewed: Yes Differential Diagnosis GASTRITIS EXACERBATION V UTI Narrative Course PATIENT WAS SEEN ON 04/09/[address] ABD/PELVIS WELL CMP AND UA....PATIENT WAS TREATED WITH ROCEPHIN IV AT THE TIME AND D/C HOME ON BACTRIM. AFTER CAREFUL D/W PATIENT , HER SYMPTOMS ARE NOT ALLERGIC BUT RATHER ADVERSE EFFECTS DUE TO MEDICINE. AFTER EVALUATING CULTURE PENDING BUT I EXPECT IV ROCEPHIN TO TAKE CARE OF HER UTI AND NO FURTHER NEED OF TAKING BACTRIM. PATIENT UNDERSTANDS Diagnosis Primary Impression: Dyspepsia Patient Instructions: Gastritis (ED), General Instructions Disposition: DISCHARGE HOME Condition: Stable Manuelito Mendes MD Apr 11, 2017 16:53
[2017-04-11 17:29] LABS: BACTERIA, URINE RARE /hpf; BILIRUBIN, URINE NEG (NEG); BLOOD, URINE NEG (NEG); GLUCOSE,URINE NEG (NEG); KETONE, URINE NEG (NEG); MUCUS URINE MOD /lpf (OCC); NITRITE,URINE NEG (NEG); RENAL EPITHELIAL CELLS <1 /hpf; SQUAMOUS EPITHELIAL CELL URINE 4 /hpf (0-5); URINE COLOR YELLOW (YELLW/STRAW); URINE LEUKOCYTE ESTERASE TRACE (NEG)
== END 2017-04-11 17:59 | disposition home or self-care (01) ==
LOC: NEPD 15:14
DX: R10.13 Epigastric pain (principal); R11.0 Nausea
CPT/HCPCS: 81001; 99283